=== PATIENT | male | born 1955 | race Two or more races ===

== ENCOUNTER 2021-08-25 21:37 | Emergency (ER) | payer OTHER ==
[~2021-08-25] VITALS: Ht 167.6 cm; Wt 66.2 kg
--- NOTE | 2021-08-25 21:48 | NUR ---
RAY FROM STREET C/O +SI WANTS VOL PSYCH ADMIT. PLACED ON [employer] HOLD. PT A/OX2/3. TOLERATING R/A WELL WITH NO SOB, RESP EVEN AND NON LABORED. CONNECTED PT TO POX AND MONITOR. SAFETY 1:[address]
[2021-08-25] MEDS ORDERED: OLANZAPINE 10 MG VIAL IM ONE ×2 (22:04→22:30)
--- NOTE | 2021-08-25 22:12 | NUR ---
SENIOR DRUPAL DEVELOPER AT PT'S BEDSIDE, COVID ANTIGEN SWAB COLLECTED AND SENT TO LAB
[2021-08-25 22:43] LABS: BASOPHILS % (AUTO) 0.9 % (0.0-2.0); EOSINOPHILS % (AUTO) 1.3 % (0.0-6.0); HEMATOCRIT 37 % (39-51); HEMOGLOBIN 12.2 g/dL (13.5-17.5); LYMPHOCYTES # (AUTO) 1.1 K/uL (0.8-4.8); LYMPHOCYTES % (AUTO) 19.4 % (20.0-44.0); MEAN CORPUSCULAR HGB CONC 33 g/dl (31.0-36.0); MEAN CORPUSCULAR VOLUME 89 fL (80-96); MONOCYTES # (AUTO) 0.4 K/uL (0.1-1.30); MONOCYTES % (AUTO) 7.1 % (2.0-12.0); NEUTROPHILS % (AUTO) 71.3 % (43.0-81.0); PLATELET COUNT (AUTO) 225 K/uL (150-450); WHITE BLOOD COUNT (AUTO) 5.7 K/uL (4.3-11.0)
[2021-08-25 22:45] LABS: BILIRUBIN,URINE NEGATIVE (NEGATIVE); COLOR,URINE YELLOW (YELLOW); LEUKOCYTE ESTERASE ,URINE NEGATIVE (NEGATIVE); NITRITE, URINE NEGATIVE (NEGATIVE); PH,URINE 5.5 (5.0-8.0); PROTEIN,URINE NEGATIVE (NEGATIVE); UGLUCOSE NEGATIVE (NEGATIVE); UROBILINOGEN,URINE 0.2 EU/dL (0.2)
[2021-08-25 22:59] LABS: ALANINE AMINOTRANSFERASE 70 U/L (12-78); ALBUMIN 3.4 g/dL (3.4-5.0); ALKALINE PHOSPHATASE 132 U/L (46-116); ASPARTATE AMINOTRANSFERASE 43 U/L (15-37); BILIRUBIN,DIRECT 0.1 mg/dL (0.0-0.2); BILIRUBIN,TOTAL 0.3 mg/dL (0.2-1.0); CALCIUM, SERUM 8.6 mg/dL (8.5-10.1); CARBON DIOXIDE 24 mmol/L (21-32); CHLORIDE 105 mmol/L (98-107); GLUCOSE 94 mg/dL (74-106); POTASSIUM 3.4 mmol/L (3.5-5.1); SODIUM SERUM 139 mmol/L (136-145); TOTAL PROTEIN, SERUM 7.3 g/dL (6.4-8.2); UREA NITROGEN, BLOOD 14 mg/dL (7-18)
[2021-08-25 23:03] LABS: ACETAMINOPHEN 0 ug/ml (10-30); ALCOHOL, BLOOD < 3 mg/dL (0-0)
--- NOTE | 2021-08-26 00:03 | NUR ---
CALLED ART AUTOTRANSFUSIONIST. HE WILL EVALUATE PATIENT.
--- NOTE | 2021-08-26 00:48 | NUR ---
ART CRISIS TEAM AT PT'S BEDSIDE
--- NOTE | 2021-08-26 01:23 | NUR ---
FACESHEET AND CLINICALS FAXED TO [facility].
--- NOTE | 2021-08-26 03:44 | NUR ---
OFFERED PT SNACKS; TOLERATING WELL
--- NOTE | 2021-08-26 04:05 | NUR ---
TRANSFER INFO PT ACCEPTED AT [facility] UNDER DR. DEY. NUMBER FOR REPORT:
--- NOTE | 2021-08-26 04:09 | NUR ---
[facility] ETA 1 HOUR.
--- NOTE | 2021-08-26 04:14 | NUR ---
[facility]
--- NOTE | 2021-08-26 04:51 | NUR ---
REPORT GIVEN TO [facility] FOR PT TO DC TO [facility]. ALL BELONGINGS GIVE TO [facility] FOR D/C. VSS.
[2021-08-26 05:03] VITALS: BP 143/87
== END 2021-08-26 04:55 ==
LOC: ER 21:39
DX: R45.851 Suicidal ideations (principal); F19.10 Other psychoactive substance abuse, uncomplicated; Z20.822 Contact with and (suspected) exposure to COVID-19; Z59.00 Homelessness unspecified
CPT/HCPCS: 99285; 96372; 85025; 80048; 80076; 81003; 36415; 87426; 80143; 80320; 80307; J3490; C9803; G0480